=== PATIENT | male | born 1935 | race Caucasian/White ===

== ENCOUNTER 2016-11-09 14:41 | Emergency (ER) | payer OTHER, MEDICARE ==
[2016-11-09 14:50] VITALS: TEMP 98.1
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
[2016-11-09 18:32] LABS: % IMMATURE GRANULYOCYTES 0.2 % (0.0-1.1); ABSOLUTE IMMATURE GRANULOCYTES 0.01 10^3/uL (0.00-0.10); ADD DIFF? NO; ADD MORPH? NO; ADD SCAN? NO; ATYPICAL LYMPHOCYTE FLAG 0 (0-99); FRAGMENT RBC FLAG 0 (0-99); HEMATOCRIT 51.1 % (40.0-51.0); HEMOGLOBIN 17.9 g/dL (13.7-17.5); LEFT SHIFT FLG 0 (0-99); LIPEMIA HEMOLYSIS FLAG 90 (0-99); MEAN CELL HEMOGLOBIN 31.8 pg (27.9-34.1); MEAN CELL VOLUME 90.8 fL (81.5-99.8); PLATELET CLUMPS FLAG 0 (0-99); PLATELET COUNT 170 10^3/uL (150-400); RED BLOOD CELL COUNT 5.63 10^6/uL (4.40-6.38); RED CELL DISTRIBUTION WIDTH 12.1 % (11.5-15.2)
[2016-11-09 18:56] LABS: ANION GAP 12 mEq/L (8-16); CALCIUM 9.5 mg/dL (8.5-10.4); CARBON DIOXIDE 25 mEq/l (22-31); CHLORIDE 105 mEq/L (97-110); ETHANOL SERUM < 10 mg/dL (0-10); GLOMERULAR FILTRATION RATE > 60; GLUCOSE 90 mg/dL (70-100); POTASSIUM 4.1 mEq/L (3.5-5.2); SODIUM 142 mEq/L (134-144)
[2016-11-09 20:03] VITALS: BP 157/81; PULSE 76; RESP 17; O2SAT 98
== END 2016-11-09 20:02 | disposition home or self-care (01) ==
DX: R45.1 Restlessness and agitation (principal)
CPT/HCPCS: 80305; G0480

== ENCOUNTER → 2017-03-02 | Outpatient (CLI) | payer OTHER, MEDICARE | LOC: CIMAGING 13:09 | PROVIDERS: ATTEND Nurse Practitioner | DX: K11.7 Disturbances of salivary secretion (principal) | CPT/HCPCS: 70491-PO ==